=== PATIENT | male | born 1970 | race Caucasian/White ===

== ENCOUNTER 2017-03-02 19:54 | Inpatient (IN) | payer MEDICARE, MEDICAID ==
[~2017-03-02] VITALS: Ht 165.1 cm; Wt 49.9 kg
[~2017-03-02 19:54] MED LIST: BENZ1TAB10 PO; BUSP10TA3 PO; CARB200T6 PO; PANT40TA25 PO; RISP2TAB22 PO; TRAZ-147 PO
[2017-03-02 20:54] LABS: BASOPHILS % (AUTO) 0.5 % (0.0-2.0); EOSINOPHILS % (AUTO) 1.9 % (1.0-6.0); HEMATOCRIT 42.8 % (41-53); HEMOGLOBIN 14.4 g/dL (13.5-17.5); MEAN CORPUSCULAR HEMOGLOBIN 31.1 pg (26.0-34.0); MEAN CORPUSCULAR HGB CONC 33.7 G/dL (31.0-37.0); MEAN CORPUSCULAR VOLUME 92 fL (80-100); MONOCYTES # (AUTO) 0.5 K/uL (0.1-1.0); MONOCYTES % (AUTO) 7.3 % (2.0-9.0); NEUTROPHILS # (AUTO) 4.1 K/uL (1.8-7.7); NEUTROPHILS % (AUTO) 61.3 % (40.0-70.0); PLATELET COUNT (AUTO) 171 K/uL (150-450); RED BLOOD CELL COUNT(AUTO) 4.65 MIL/uL (4.50-5.90); RED CELL DISTRIBUTION WIDTH 13.6 % (11.5-14.5); WHITE BLOOD COUNT (AUTO) 6.8 K/uL (4.5-11.0)
[2017-03-02 21:12] LABS: ANION GAP 7 mmol/L (8-16); CALCIUM, TOTAL 8.7 mg/dL (8.8-10.5); CARBON DIOXIDE 28 mmol/L (22-29); CHLORIDE 95 mmol/L (98-107); CREATININE 1.09 mg/dL (0.60-1.30); GLOMERULAR FILTR. RATE CALC > 60 mL/min (>60); POTASSIUM 3.6 mmol/L (3.5-5.1); SODIUM SERUM 130 mmol/L (136-145); UREA NITROGEN, BLOOD 12 mg/dL (7-18)
[2017-03-02 21:18] LABS: ALANINE AMINOTRANSFERASE 11 U/L (12-78); ALBUMIN 3.9 g/dL (3.4-5.0); ASPARTATE AMINOTRANSFERASE 11 U/L (15-37); BILIRUBIN,TOTAL 0.4 mg/dL (0.1-1.0); TOTAL PROTEIN, SERUM 7.8 g/dL (6.4-8.2)
[2017-03-02] MEDS ORDERED: HALOPERIDOL 5 MG TABLET PO ONE (22:45)
[2017-03-02] MEDS ORDERED: LORazepam 2 MG TABLET PO ONE (22:45)
[2017-03-02] MEDS ORDERED: SODIUM CHLORIDE 1 GM TABLET PO ONE (22:45)
[2017-03-02] MEDS ORDERED: ZOLPIDEM TARTRATE 10 MG TABLET PO PRN (23:15)
[2017-03-02] MEDS ORDERED: LORazepam 2 MG TABLET PO PRN (23:15)
[2017-03-02] MEDS ORDERED: HALOPERIDOL 5 MG TABLET PO PRN (23:15)
[2017-03-03 00:01] LABS: CHOL/HDL RATIO 3.4 (4.2-7.3)
[2017-03-03 01:03] LABS: APPEARANCE,URINE CLEAR (CLEAR); GLUCOSE, URINE (UA) NEGATIVE (NEGATIVE); KETONES,URINE NEGATIVE (NEGATIVE); LEUKOCYTE ESTERASE ,URINE NEGATIVE (NEGATIVE); OCCULT BLOOD,URINE NEGATIVE (NEGATIVE); PH,URINE 6.5 (5.0-8.0); PROTEIN,URINE NEGATIVE (NEGATIVE)
[2017-03-03 01:04] LABS: ADD UA MICROSCOPIC NO
[2017-03-03 02:16] VITALS: BP 127/79
[2017-03-03 02:43] VITALS: BP 127/79
[2017-03-03 08:19] VITALS: BP 119/67
[2017-03-03] MEDS ORDERED: ONDANSETRON HCL 4 MG TABLET PO PRN (17:30)
[2017-03-03] MEDS ORDERED: CloNIDine HCL 0.1 MG TABLET PO PRN (17:30)
[2017-03-03] MEDS ORDERED: ACETAMINOPHEN 325 MG TABLET PO PRN (17:30)
[2017-03-03] MEDS ORDERED: IBUPROFEN 600 MG TABLET PO PRN (17:30)
[2017-03-03] MEDS ORDERED: LOPERAMIDE HCL 2 MG CAPSULE PO PRN (17:30)
[2017-03-03] MEDS ORDERED: ALBUTEROL SULFATE HFA 90 MCG/PUFF 8 GM INHALER IH PRN (17:30)
[2017-03-03] MEDS ORDERED: PETROLATUM,WHITE 71 GM JELLY TP PRN (17:30)
[2017-03-03] MEDS ORDERED: BACITRACIN 28.4 GM OINTMENT TP PRN (17:30)
[2017-03-03 21:28] VITALS: BP 124/73
[2017-03-04 07:10] LABS: THYROID STIMULATING HORMONE 4.15 uIU/mL (0.36-3.74)
[2017-03-04 08:02] VITALS: BP 137/98
[2017-03-04 16:51] VITALS: BP 134/97
[2017-03-04] MEDS: CarBAMazepine 200 MG TABLET PO SCH (18:44)
[2017-03-04] MEDS: BENZTROPINE MESYLATE 1 MG TABLET PO SCH (18:44)
[2017-03-04] MEDS: DIVALPROEX SODIUM 500 MG DR TABLET PO SCH (18:44)
[2017-03-04] MEDS: BusPIRone HCL 10 MG TABLET PO SCH (19:10)
[2017-03-04] MEDS: TraZODone HCL 150 MG TABLET PO SCH (20:08)
[2017-03-04] MEDS: RisperiDONE 4 MG TABLET PO SCH (20:08)
[2017-03-05 08:30] VITALS: BP 123/78
[2017-03-05] MEDS: DIVALPROEX SODIUM 500 MG DR TABLET PO SCH ×2 (09:04→16:29)
[2017-03-05] MEDS: CarBAMazepine 200 MG TABLET PO SCH ×2 (09:04→16:29)
[2017-03-05] MEDS: BENZTROPINE MESYLATE 1 MG TABLET PO SCH ×2 (09:04→16:29)
[2017-03-05] MEDS: BusPIRone HCL 10 MG TABLET PO SCH ×2 (09:05→16:29)
[2017-03-05 19:13] VITALS: BP 122/86
[2017-03-05] MEDS: TraZODone HCL 150 MG TABLET PO SCH (20:36)
[2017-03-05] MEDS: RisperiDONE 4 MG TABLET PO SCH (20:36)
[2017-03-06 08:00] VITALS: BP 112/54
[2017-03-06] MEDS: BENZTROPINE MESYLATE 1 MG TABLET PO SCH ×2 (08:37→16:28)
[2017-03-06] MEDS: BusPIRone HCL 10 MG TABLET PO SCH ×2 (08:37→16:28)
[2017-03-06] MEDS: CarBAMazepine 200 MG TABLET PO SCH ×2 (08:37→16:28)
[2017-03-06] MEDS: DIVALPROEX SODIUM 500 MG DR TABLET PO SCH ×2 (08:37→16:28)
[2017-03-06 18:04] VITALS: BP 118/66
[2017-03-06] MEDS: TraZODone HCL 150 MG TABLET PO SCH (20:19)
[2017-03-06] MEDS: RisperiDONE 4 MG TABLET PO SCH (20:19)
[2017-03-07 08:26] VITALS: BP 129/83
[2017-03-07] MEDS: BusPIRone HCL 10 MG TABLET PO SCH ×2 (09:08→16:37)
[2017-03-07] MEDS: CarBAMazepine 200 MG TABLET PO SCH ×2 (09:08→16:37)
[2017-03-07] MEDS: DIVALPROEX SODIUM 500 MG DR TABLET PO SCH ×2 (09:08→16:38)
[2017-03-07] MEDS: BENZTROPINE MESYLATE 1 MG TABLET PO SCH ×2 (09:08→16:37)
[2017-03-07 16:39] VITALS: BP 105/61
[2017-03-07] MEDS: TraZODone HCL 150 MG TABLET PO SCH (20:39)
[2017-03-07] MEDS: RisperiDONE 4 MG TABLET PO SCH (20:39)
[2017-03-08 08:17] VITALS: BP 143/91
[2017-03-08] MEDS: BusPIRone HCL 10 MG TABLET PO SCH (08:38)
[2017-03-08] MEDS: CarBAMazepine 200 MG TABLET PO SCH (08:38)
[2017-03-08] MEDS: BENZTROPINE MESYLATE 1 MG TABLET PO SCH (08:38)
[2017-03-08] MEDS: DIVALPROEX SODIUM 500 MG DR TABLET PO SCH (08:38)
[2017-03-08] MEDS ORDERED: DIVA500T35 PO (11:02)
[2017-03-08] MEDS ORDERED: RISP4 PO (11:02)
[2017-03-08] MEDS ORDERED: TRAZ150 PO (11:02)
[2017-03-08] MEDS ORDERED: LEVO25TA9 PO (11:05)
[2017-03-09] MEDS ORDERED: LEVOTHYROXINE SODIUM 25 MCG TABLET PO SCH (07:00)
== END 2017-03-08 16:15 | disposition home or self-care (01) | DRG 885 ==
LOC: EMS 19:55 → 3EX 23:53
PROVIDERS: ATTEND Psychiatry & Neurology Psychiatry
DX: F25.9 Schizoaffective disorder, unspecified (principal); E87.1 Hypo-osmolality and hyponatremia; R45.851 Suicidal ideations; E83.51 Hypocalcemia; E78.5 Hyperlipidemia, unspecified; G47.00 Insomnia, unspecified; K21.9 Gastro-esophageal reflux disease without esophagitis; K59.00 Constipation, unspecified; G80.9 Cerebral palsy, unspecified; F32.9 Major depressive disorder, single episode, unspecified; E03.9 Hypothyroidism, unspecified; Z88.5 Allergy status to narcotic agent
CPT/HCPCS: 82306; 83036; 84295; 84443; 99285; G0480

== ENCOUNTER 2017-07-12 18:13 | Inpatient (IN) | payer MEDICARE, MEDICAID ==
[~2017-07-12] VITALS: Ht 165.1 cm; Wt 47.7 kg
[~2017-07-12 18:13] MED LIST changes: +DIVA500T35 PO; +LEVO25TA9 PO; -PANT40TA25 PO; -RISP2TAB22 PO; +RISP4 PO; -TRAZ-147 PO; +TRAZ150 PO
[2017-07-12 18:18] VITALS: BP 140/91
[2017-07-12] MEDS ORDERED: LORazepam 2 MG TABLET PO PRN (18:30)
[2017-07-12] MEDS ORDERED: ZOLPIDEM TARTRATE 10 MG TABLET PO PRN (18:30)
[2017-07-12] MEDS ORDERED: INFLUENZA VIRUS VACCINE QVS 2017-18 (3YR+)/PF 60 MCG/0.5 ML SYRINGE IM ONE (19:15)
[2017-07-12] MEDS: DIVALPROEX SODIUM 500 MG DR TABLET PO SCH (19:56)
[2017-07-12] MEDS: CarBAMazepine 200 MG TABLET PO SCH (19:56)
[2017-07-12 20:08] VITALS: BP 134/95
[2017-07-12] MEDS: RisperiDONE 4 MG TABLET PO SCH (21:43)
[2017-07-12] MEDS: BENZTROPINE MESYLATE 1 MG TABLET PO SCH (21:43)
[2017-07-12] MEDS: BusPIRone HCL 10 MG TABLET PO SCH (21:43)
[2017-07-12] MEDS: TraZODone HCL 150 MG TABLET PO SCH (21:44)
[2017-07-12] MEDS ORDERED: DENTURE ADHESIVE 68 GM CREAM DT PRN (22:15)
[2017-07-12 22:56] VITALS: BP 130/86
[2017-07-13 07:46] LABS: BASOPHILS % (AUTO) 0.5 % (0.0-2.0); HEMATOCRIT 41.9 % (41-53); LYMPHOCYTES # (AUTO) 1.9 K/uL (1.0-4.8); LYMPHOCYTES % (AUTO) 35.6 % (22.0-44.0); MEAN CORPUSCULAR HGB CONC 33.4 G/dL (31.0-37.0); MEAN CORPUSCULAR VOLUME 93 fL (80-100); MONOCYTES # (AUTO) 0.6 K/uL (0.1-1.0); MONOCYTES % (AUTO) 12.3 % (2.0-9.0); NEUTROPHILS # (AUTO) 2.5 K/uL (1.8-7.7); NEUTROPHILS % (AUTO) 47.6 % (40.0-70.0); PLATELET COUNT (AUTO) 190 K/uL (150-450); RED BLOOD CELL COUNT(AUTO) 4.51 MIL/uL (4.50-5.90); RED CELL DISTRIBUTION WIDTH 13.2 % (11.5-14.5)
[2017-07-13 08:21] LABS: ALANINE AMINOTRANSFERASE 12 U/L (12-78); ALBUMIN 3.1 g/dL (3.4-5.0); ALKALINE PHOSPHATASE 67 U/L (46-116); ANION GAP 2 mmol/L (8-16); ASPARTATE AMINOTRANSFERASE 10 U/L (15-37); BILIRUBIN,TOTAL 0.2 mg/dL (0.1-1.0); CALCIUM, TOTAL 8.5 mg/dL (8.8-10.5); CARBON DIOXIDE 34 mmol/L (22-29); CHLORIDE 100 mmol/L (98-107); CREATININE 1.03 mg/dL (0.60-1.30); FREE T4 (FREE THYROXINE) 0.83 ng/dL (0.76-1.46); GLOMERULAR FILTR. RATE CALC > 60 mL/min (>60); GLUCOSE,RANDOM 81 mg/dL (70-110); POTASSIUM 3.8 mmol/L (3.5-5.1); SODIUM SERUM 136 mmol/L (136-145); TOTAL PROTEIN, SERUM 6.5 g/dL (6.4-8.2); UREA NITROGEN, BLOOD 8 mg/dL (7-18); VALPROIC ACID 45 mcg/mL (50-100)
[2017-07-13] MEDS: CarBAMazepine 200 MG TABLET PO SCH ×2 (08:24→16:40)
[2017-07-13] MEDS: DIVALPROEX SODIUM 500 MG DR TABLET PO SCH ×2 (08:24→16:40)
[2017-07-13] MEDS: BENZTROPINE MESYLATE 1 MG TABLET PO SCH ×2 (08:24→20:35)
[2017-07-13] MEDS: BusPIRone HCL 10 MG TABLET PO SCH ×2 (08:24→20:35)
[2017-07-13 08:39] VITALS: BP 121/76
[2017-07-13 16:11] VITALS: BP 106/60
[2017-07-13] MEDS: TraZODone HCL 150 MG TABLET PO SCH (20:36)
[2017-07-13] MEDS: RisperiDONE 4 MG TABLET PO SCH (20:36)
[2017-07-14 00:27] VITALS: BP 106/75
[2017-07-14 08:07] VITALS: BP 125/75
[2017-07-14] MEDS: CarBAMazepine 200 MG TABLET PO SCH ×2 (08:08→16:31)
[2017-07-14] MEDS: BusPIRone HCL 10 MG TABLET PO SCH ×2 (08:08→20:31)
[2017-07-14] MEDS: DIVALPROEX SODIUM 500 MG DR TABLET PO SCH ×2 (08:08→16:31)
[2017-07-14] MEDS: BENZTROPINE MESYLATE 1 MG TABLET PO SCH ×2 (08:08→20:31)
[2017-07-14 16:13] VITALS: BP 114/71
[2017-07-14] MEDS: RisperiDONE 4 MG TABLET PO SCH (20:31)
[2017-07-14] MEDS: TraZODone HCL 150 MG TABLET PO SCH (20:31)
[2017-07-15 01:25] VITALS: BP 108/80
[2017-07-15 08:11] VITALS: BP 113/74
[2017-07-15] MEDS: BENZTROPINE MESYLATE 1 MG TABLET PO SCH ×2 (08:21→20:33)
[2017-07-15] MEDS: BusPIRone HCL 10 MG TABLET PO SCH ×2 (08:21→20:33)
[2017-07-15] MEDS: DIVALPROEX SODIUM 500 MG DR TABLET PO SCH ×2 (08:21→17:05)
[2017-07-15] MEDS: CarBAMazepine 200 MG TABLET PO SCH ×2 (08:21→17:05)
[2017-07-15 16:07] VITALS: BP 112/80
[2017-07-15] MEDS: RisperiDONE 4 MG TABLET PO SCH (20:33)
[2017-07-15] MEDS: TraZODone HCL 150 MG TABLET PO SCH (20:33)
[2017-07-16 00:22] VITALS: BP 114/70
[2017-07-16 08:21] VITALS: BP 119/82
[2017-07-16] MEDS: CarBAMazepine 200 MG TABLET PO SCH ×2 (08:22→16:16)
[2017-07-16] MEDS: DIVALPROEX SODIUM 500 MG DR TABLET PO SCH ×2 (08:22→16:16)
[2017-07-16] MEDS: BENZTROPINE MESYLATE 1 MG TABLET PO SCH ×2 (08:22→20:17)
[2017-07-16] MEDS: BusPIRone HCL 10 MG TABLET PO SCH ×2 (08:22→20:17)
[2017-07-16] MEDS ORDERED: BISACODYL 5 MG EC TABLET PO PRN (08:30)
[2017-07-16 16:09] VITALS: BP 115/85
[2017-07-16] MEDS: RisperiDONE 4 MG TABLET PO SCH (20:17)
[2017-07-16] MEDS: TraZODone HCL 150 MG TABLET PO SCH (20:17)
[2017-07-17 00:49] VITALS: BP 125/81
[2017-07-17 08:18] VITALS: BP 126/73
[2017-07-17] MEDS: CarBAMazepine 200 MG TABLET PO SCH ×2 (08:31→16:21)
[2017-07-17] MEDS: BusPIRone HCL 10 MG TABLET PO SCH (08:31)
[2017-07-17] MEDS: DIVALPROEX SODIUM 500 MG DR TABLET PO SCH ×2 (08:31→16:21)
[2017-07-17] MEDS: BENZTROPINE MESYLATE 1 MG TABLET PO SCH (08:32)
[2017-07-17 16:40] VITALS: BP 121/80
== END 2017-07-17 17:10 | disposition home or self-care (01) | DRG 885 ==
LOC: B2X 18:47
PROVIDERS: ADMIT Psychiatry & Neurology Psychiatry; ATTEND Psychiatry & Neurology Psychiatry
PROC: 3E0234Z Introduction of Serum, Toxoid and Vaccine into Muscle, Percutaneous Approach (ICD-10-PCS; principal; 2017-07-12)
DX: F25.9 Schizoaffective disorder, unspecified (principal); R56.9 Unspecified convulsions; D64.9 Anemia, unspecified; E78.5 Hyperlipidemia, unspecified; G80.9 Cerebral palsy, unspecified; K59.00 Constipation, unspecified; Z23 Encounter for immunization
CPT/HCPCS: 84436; 84439

== ENCOUNTER 2018-02-07 12:10 | Inpatient (IN) | payer MEDICARE, MEDICAID ==
[~2018-02-07] VITALS: Ht 170.2 cm; Wt 49.9 kg
[~2018-02-07 12:10] MED LIST changes: +DIVA-78 PO; -DIVA500T35 PO; -LEVO25TA9 PO
[2018-02-07] MEDS ORDERED: LORazepam 1 MG TABLET PO PRN (12:15)
[2018-02-07] MEDS ORDERED: ZOLPIDEM TARTRATE 10 MG TABLET PO PRN (12:15)
[2018-02-07 16:05] VITALS: BP 110/73
[2018-02-07] MEDS: CarBAMazepine 200 MG TABLET PO SCH (16:32)
[2018-02-07] MEDS: DIVALPROEX SODIUM 500 MG DR TABLET PO SCH (16:32)
[2018-02-07] MEDS: BENZTROPINE MESYLATE 1 MG TABLET PO SCH (16:32)
[2018-02-07] MEDS: BusPIRone HCL 10 MG TABLET PO SCH (16:32)
[2018-02-07] MEDS: TraZODone HCL 150 MG TABLET PO SCH (20:34)
[2018-02-07] MEDS: DiphenhydrAMINE HCL 25 MG CAPSULE PO SCH (20:34)
[2018-02-07] MEDS: RisperiDONE 4 MG TABLET PO SCH (20:34)
[2018-02-08 00:10] VITALS: BP 106/68
[2018-02-08 08:25] LABS: BASOPHILS % (AUTO) 0.3 % (0.0-2.0); EOSINOPHILS % (AUTO) 3.2 % (1.0-6.0); HEMATOCRIT 49.4 % (41-53); HEMOGLOBIN 16.5 g/dL (13.5-17.5); LYMPHOCYTES # (AUTO) 2.2 K/uL (1.0-4.8); LYMPHOCYTES % (AUTO) 34.5 % (22.0-44.0); MEAN CORPUSCULAR HEMOGLOBIN 31.8 pg (26.0-34.0); MEAN CORPUSCULAR HGB CONC 33.3 G/dL (31.0-37.0); MEAN CORPUSCULAR VOLUME 96 fL (80-100); MONOCYTES # (AUTO) 0.5 K/uL (0.1-1.0); MONOCYTES % (AUTO) 7.2 % (2.0-9.0); NEUTROPHILS # (AUTO) 3.4 K/uL (1.8-7.7); NEUTROPHILS % (AUTO) 54.8 % (40.0-70.0); PLATELET COUNT (AUTO) 195 K/uL (150-450); RED BLOOD CELL COUNT(AUTO) 5.18 MIL/uL (4.50-5.90); RED CELL DISTRIBUTION WIDTH 13.4 % (11.5-14.5)
[2018-02-08] MEDS: CarBAMazepine 200 MG TABLET PO SCH ×2 (08:37→16:35)
[2018-02-08] MEDS: BusPIRone HCL 10 MG TABLET PO SCH ×2 (08:37→16:35)
[2018-02-08] MEDS: DIVALPROEX SODIUM 500 MG DR TABLET PO SCH ×2 (08:37→16:35)
[2018-02-08] MEDS: BENZTROPINE MESYLATE 1 MG TABLET PO SCH ×2 (08:37→16:35)
[2018-02-08 08:39] VITALS: BP 109/63
[2018-02-08 08:47] LABS: ALANINE AMINOTRANSFERASE 22 U/L (12-78); ALBUMIN 3.6 g/dL (3.4-5.0); ALKALINE PHOSPHATASE 127 U/L (46-116); ANION GAP 6 mmol/L (8-16); ASPARTATE AMINOTRANSFERASE 13 U/L (15-37); BILIRUBIN,TOTAL 0.5 mg/dL (0.1-1.0); CARBON DIOXIDE 33 mmol/L (22-29); CHLORIDE 100 mmol/L (98-107); CHOL/HDL RATIO 3.9 (4.2-7.3); CHOLESTEROL 220 mg/dL (131-200); CREATININE 0.94 mg/dL (0.60-1.30); FREE T4 (FREE THYROXINE) 0.75 ng/dL (0.76-1.46); GLOMERULAR FILTR. RATE CALC > 60 mL/min (>60); GLUCOSE,RANDOM 85 mg/dL (70-110); HDL CHOLESTEROL 56 mg/dL (40-60); LDL CHOL (CALC.) 144 mg/dL (0-130); POTASSIUM 3.8 mmol/L (3.5-5.1); SODIUM SERUM 139 mmol/L (136-145); THYROID STIMULATING HORMONE 4.48 uIU/mL (0.36-3.74); TOTAL PROTEIN, SERUM 7.8 g/dL (6.4-8.2); TRIGLYCERIDES 102 mg/dL (15-150); UREA NITROGEN, BLOOD 12 mg/dL (7-18)
[2018-02-08 08:48] LABS: HEMOGLOBIN A1C 4.7 % (4.5-6.2)
[2018-02-08 16:06] VITALS: BP 115/68
[2018-02-08] MEDS: TraZODone HCL 150 MG TABLET PO SCH (20:35)
[2018-02-08] MEDS: RisperiDONE 4 MG TABLET PO SCH (20:35)
[2018-02-08] MEDS: DiphenhydrAMINE HCL 25 MG CAPSULE PO SCH (20:35)
[2018-02-08] MEDS: ATORVASTATIN CALCIUM 10 MG TABLET PO SCH (20:55)
[2018-02-09] MEDS: LEVOTHYROXINE SODIUM 25 MCG TABLET PO SCH (05:34)
[2018-02-09 05:42] VITALS: BP 105/58
[2018-02-09 08:34] VITALS: BP 114/68
[2018-02-09] MEDS: BusPIRone HCL 10 MG TABLET PO SCH ×2 (08:34→16:36)
[2018-02-09] MEDS: DIVALPROEX SODIUM 500 MG DR TABLET PO SCH ×2 (08:34→16:36)
[2018-02-09] MEDS: CarBAMazepine 200 MG TABLET PO SCH ×2 (08:34→16:36)
[2018-02-09] MEDS: BENZTROPINE MESYLATE 1 MG TABLET PO SCH ×2 (08:34→16:36)
[2018-02-09 16:04] VITALS: BP 120/75
[2018-02-09] MEDS: ATORVASTATIN CALCIUM 10 MG TABLET PO SCH (20:38)
[2018-02-09] MEDS: TraZODone HCL 150 MG TABLET PO SCH (20:38)
[2018-02-09] MEDS: RisperiDONE 4 MG TABLET PO SCH (20:38)
[2018-02-09] MEDS: DiphenhydrAMINE HCL 25 MG CAPSULE PO SCH (20:38)
[2018-02-10 06:16] VITALS: BP 109/81
[2018-02-10] MEDS: LEVOTHYROXINE SODIUM 25 MCG TABLET PO SCH (06:25)
[2018-02-10 08:36] VITALS: BP 116/71
[2018-02-10] MEDS: BusPIRone HCL 10 MG TABLET PO SCH ×2 (08:42→16:42)
[2018-02-10] MEDS: BENZTROPINE MESYLATE 1 MG TABLET PO SCH ×2 (08:42→16:42)
[2018-02-10] MEDS: CarBAMazepine 200 MG TABLET PO SCH ×2 (08:42→16:42)
[2018-02-10] MEDS: DIVALPROEX SODIUM 500 MG DR TABLET PO SCH ×2 (08:42→16:42)
[2018-02-10 16:19] VITALS: BP 114/69
[2018-02-10] MEDS: RisperiDONE 4 MG TABLET PO SCH (20:38)
[2018-02-10] MEDS: DiphenhydrAMINE HCL 25 MG CAPSULE PO SCH (20:38)
[2018-02-10] MEDS: TraZODone HCL 150 MG TABLET PO SCH (20:38)
[2018-02-10] MEDS: ATORVASTATIN CALCIUM 10 MG TABLET PO SCH (20:39)
[2018-02-11 04:37] VITALS: BP 112/73
[2018-02-11] MEDS: LEVOTHYROXINE SODIUM 25 MCG TABLET PO SCH (06:42)
[2018-02-11] MEDS ORDERED: BISACODYL 5 MG EC TABLET PO PRN (08:30)
[2018-02-11 08:46] VITALS: BP 107/60
[2018-02-11] MEDS: DIVALPROEX SODIUM 500 MG DR TABLET PO SCH ×2 (08:59→16:45)
[2018-02-11] MEDS: BENZTROPINE MESYLATE 1 MG TABLET PO SCH ×2 (08:59→16:45)
[2018-02-11] MEDS: BusPIRone HCL 10 MG TABLET PO SCH ×2 (09:00→16:45)
[2018-02-11] MEDS: CarBAMazepine 200 MG TABLET PO SCH ×2 (09:00→16:45)
[2018-02-11 17:34] VITALS: BP 100/71
[2018-02-11] MEDS: DiphenhydrAMINE HCL 25 MG CAPSULE PO SCH (20:40)
[2018-02-11] MEDS: ATORVASTATIN CALCIUM 10 MG TABLET PO SCH (20:40)
[2018-02-11] MEDS: RisperiDONE 4 MG TABLET PO SCH (20:40)
[2018-02-11] MEDS: TraZODone HCL 150 MG TABLET PO SCH (20:40)
[2018-02-12 06:11] VITALS: BP 115/83
[2018-02-12] MEDS: LEVOTHYROXINE SODIUM 25 MCG TABLET PO SCH (06:51)
[2018-02-12] MEDS: CarBAMazepine 200 MG TABLET PO SCH ×2 (08:23→16:31)
[2018-02-12] MEDS: BENZTROPINE MESYLATE 1 MG TABLET PO SCH ×2 (08:23→16:31)
[2018-02-12] MEDS: BusPIRone HCL 10 MG TABLET PO SCH ×2 (08:23→16:31)
[2018-02-12] MEDS: DIVALPROEX SODIUM 500 MG DR TABLET PO SCH ×2 (08:23→16:31)
[2018-02-12 08:34] VITALS: BP 118/68
[2018-02-12 16:12] VITALS: BP 110/69
[2018-02-12] MEDS: ATORVASTATIN CALCIUM 10 MG TABLET PO SCH (20:56)
[2018-02-12] MEDS: DiphenhydrAMINE HCL 25 MG CAPSULE PO SCH (20:56)
[2018-02-12] MEDS: RisperiDONE 4 MG TABLET PO SCH (20:56)
[2018-02-12] MEDS: TraZODone HCL 150 MG TABLET PO SCH (20:56)
[2018-02-13 05:35] VITALS: BP 102/67
[2018-02-13] MEDS: LEVOTHYROXINE SODIUM 25 MCG TABLET PO SCH (06:42)
[2018-02-13 08:00] VITALS: BP 126/78
[2018-02-13] MEDS: CarBAMazepine 200 MG TABLET PO SCH ×2 (08:24→16:40)
[2018-02-13] MEDS: BENZTROPINE MESYLATE 1 MG TABLET PO SCH ×2 (08:24→16:40)
[2018-02-13] MEDS: DIVALPROEX SODIUM 500 MG DR TABLET PO SCH ×2 (08:24→16:40)
[2018-02-13] MEDS: BusPIRone HCL 10 MG TABLET PO SCH ×2 (08:24→16:40)
[2018-02-13 16:10] VITALS: BP 116/69
[2018-02-13] MEDS: ATORVASTATIN CALCIUM 10 MG TABLET PO SCH (20:33)
[2018-02-13] MEDS: TraZODone HCL 150 MG TABLET PO SCH (20:33)
[2018-02-13] MEDS: RisperiDONE 4 MG TABLET PO SCH (20:33)
[2018-02-13] MEDS: DiphenhydrAMINE HCL 25 MG CAPSULE PO SCH (20:33)
[2018-02-14 06:04] VITALS: BP 105/58
[2018-02-14] MEDS: LEVOTHYROXINE SODIUM 25 MCG TABLET PO SCH (06:36)
[2018-02-14 08:00] VITALS: BP 120/84
[2018-02-14] MEDS: CarBAMazepine 200 MG TABLET PO SCH ×2 (08:29→16:37)
[2018-02-14] MEDS: DIVALPROEX SODIUM 500 MG DR TABLET PO SCH ×2 (08:29→16:37)
[2018-02-14] MEDS: BusPIRone HCL 10 MG TABLET PO SCH ×2 (08:29→16:37)
[2018-02-14] MEDS: BENZTROPINE MESYLATE 1 MG TABLET PO SCH ×2 (08:29→16:37)
[2018-02-14 16:45] VITALS: BP 138/86
[2018-02-14] MEDS: RisperiDONE 4 MG TABLET PO SCH (20:40)
[2018-02-14] MEDS: TraZODone HCL 150 MG TABLET PO SCH (20:40)
[2018-02-14] MEDS: ATORVASTATIN CALCIUM 10 MG TABLET PO SCH (20:40)
[2018-02-14] MEDS: DiphenhydrAMINE HCL 25 MG CAPSULE PO SCH (20:40)
[2018-02-15 05:48] VITALS: BP 109/65
[2018-02-15] MEDS: LEVOTHYROXINE SODIUM 25 MCG TABLET PO SCH (06:53)
[2018-02-15 08:05] VITALS: BP 122/57
[2018-02-15] MEDS: DIVALPROEX SODIUM 500 MG DR TABLET PO SCH ×2 (08:05→17:12)
[2018-02-15] MEDS: BENZTROPINE MESYLATE 1 MG TABLET PO SCH ×2 (08:05→17:12)
[2018-02-15] MEDS: CarBAMazepine 200 MG TABLET PO SCH ×2 (08:05→17:12)
[2018-02-15] MEDS: BusPIRone HCL 10 MG TABLET PO SCH ×2 (08:05→17:12)
[2018-02-15 16:13] VITALS: BP 113/71
[2018-02-15] MEDS: ATORVASTATIN CALCIUM 10 MG TABLET PO SCH (21:09)
[2018-02-15] MEDS: DiphenhydrAMINE HCL 25 MG CAPSULE PO SCH (21:09)
[2018-02-15] MEDS: TraZODone HCL 150 MG TABLET PO SCH (21:10)
[2018-02-15] MEDS: RisperiDONE 4 MG TABLET PO SCH (21:10)
[2018-02-16 06:12] VITALS: BP 107/60
[2018-02-16] MEDS: LEVOTHYROXINE SODIUM 25 MCG TABLET PO SCH (06:56)
[2018-02-16 08:00] VITALS: BP 107/65
[2018-02-16] MEDS: DIVALPROEX SODIUM 500 MG DR TABLET PO SCH ×2 (08:21→16:44)
[2018-02-16] MEDS: CarBAMazepine 200 MG TABLET PO SCH ×2 (08:21→16:44)
[2018-02-16] MEDS: BENZTROPINE MESYLATE 1 MG TABLET PO SCH ×2 (08:22→16:44)
[2018-02-16] MEDS: BusPIRone HCL 10 MG TABLET PO SCH ×2 (08:22→16:44)
[2018-02-16] MEDS ORDERED: ATOR10TA84 PO (13:15)
[2018-02-16] MEDS ORDERED: LEVO25TA9 PO (13:15)
[2018-02-16] MEDS ORDERED: DIPH50 PO (13:15)
[2018-02-16 16:19] VITALS: BP 113/71
== END 2018-02-16 18:10 | disposition home or self-care (01) | DRG 885 ==
LOC: B2X 12:30
PROVIDERS: ADMIT Psychiatry & Neurology Psychiatry; ATTEND Psychiatry & Neurology Psychiatry
DX: F25.1 Schizoaffective disorder, depressive type (principal); E03.9 Hypothyroidism, unspecified; E78.5 Hyperlipidemia, unspecified; G80.9 Cerebral palsy, unspecified; K59.00 Constipation, unspecified; Q89.9 Congenital malformation, unspecified; Z91.19 Patient's noncompliance with other medical treatment and regimen
CPT/HCPCS: 83036; 84439; 84443